=== PATIENT | female | born 1970 | race Caucasian/White ===

== ENCOUNTER 2022-08-19 08:24 | Outpatient (CLI) | payer BC, SELFPAY ==
[2022-08-19 14:07] LABS: Basophils Absolute Auto 0.04 K/uL (0.00-0.30); Basophils Percent Auto 0.5 % (0.0-3.0); Eosinophils Absolute Auto 0.17 K/uL (0.00-0.50); Hematocrit 46.4 % (33.0-51.0); Hemoglobin* 15.1 gm/dL (12.0-16.0); Immature Granulocytes Abs Auto 0.02 K/uL (0.00-0.30); Immature Granulocytes Pct Auto 0.2 %; Lymphocytes Absolute Auto 1.67 K/uL (0.90-2.90); Lymphocytes Percent Auto 20.1 % (20-44); Mean Corpuscular HGB Conc 33 gm/dL (32-36); Mean Corpuscular Hemoglobin 30 pg (26-34); Mean Corpuscular Volume 92 fL (80-100); Monocytes Percent Auto 9.2 % (0.0-11.0); Neutrophils Absolute Auto 5.64 K/uL (1.7-7.0); Platelet Count* 318 K/uL (140-440); RDW Coefficient of Variation % 16.1 % (11.5-15.5); Red Blood Count 5.06 m/uL (4.00-5.20)
[2022-08-19 14:19] LABS: Slide Review Reflex No
[2022-08-19 14:41] LABS: Chloride* 105 mmol/L (96-114); Potassium* 5.2 mmol/L (3.6-5.1); Sodium* 140 mmol/L (135-149)
[2022-08-19 14:44] LABS: Blood Urea Nitrogen* 15 mg/dL (5-24); Carbon Dioxide* 30 mmol/L (20-32); Cholesterol* 187 mg/dL (90-199); Creatinine* 0.8 mg/dL (0.5-1.5); Estimated Glomerular Filt Rate 90 ml/min; Glucose* 104 mg/dL (60-115)
[2022-08-19 14:45] LABS: Calcium* 9.6 mg/dL (8.4-10.6); HDL Cholesterol* 77 mg/dL (>=50); LDL Cholesterol Calculated 93 mg/dL (<100); Triglycerides* 84 mg/dL (40-149)
== END 2022-08-19 08:25 | disposition home or self-care (01) ==
PROVIDERS: PCP Family Medicine; Visit Provider Family Medicine
DX: Z00.00 Encounter for general adult medical examination without abnormal findings (principal); E55.9 Vitamin D deficiency, unspecified; Z13.6 Encounter for screening for cardiovascular disorders
CPT/HCPCS: 80048; 80061; 85025

== ENCOUNTER 2022-11-11 14:37 | Outpatient (CLI) | payer OTHER, SELFPAY ==
--- NOTE | 2022-11-11 14:40 | CRLHL7_ITS ---
For Patients: As a result of the Century Cures Act, medical imaging exams and procedure reports are released immediately into your electronic medical record. You may view this report before your referring provider. If you have questions, please contact your health care provider. BILATERAL SCREENING MAMMOGRAM WITH COMPUTER-AIDED DETECTION TECHNIQUE: CC and MLO views were obtained. These mammographic images have been obtained using full-field digital technique. These mammographic images were interpreted with the benefit of computer-aided detection. COMPARISON FILM: 05/07/20, 02/22/14. FINDINGS: There are scattered areas of fibroglandular density IMPRESSION: There is no radiographic evidence for malignancy. ASSESSMENT: BI-RADS Category 1: Negative RECOMMENDATION: Routine screening mammogram in 1 year. A lay language report of this examination will be provided to the patient. Cedric Love M.D. Diagnostic Radiologist [email or web address] Transcribed: 1:57 p.mAmara mitchell/Dictated by: Cedric Love MD @ 11/12/2022 10:13:00 AM (Electronically Signed)
== END 2022-11-11 14:38 | disposition home or self-care (01) ==
LOC: MAMMO 14:40
PROVIDERS: PCP Family Medicine; Visit Provider Family Medicine
DX: Z12.31 Encounter for screening mammogram for malignant neoplasm of breast (principal)
CPT/HCPCS: 77067

== ENCOUNTER 2024-03-07 08:27 | Outpatient (CLI) | payer OTHER, SELFPAY | END 2024-03-07 08:28 | disposition home or self-care (01) | PROVIDERS: PCP Family Medicine; Visit Provider Family Medicine | DX: I10 Essential (primary) hypertension (principal); Z13.220 Encounter for screening for lipoid disorders | CPT/HCPCS: 80048; 80061; 85025 ==

== ENCOUNTER 2024-05-30 14:53 | Outpatient (CLI) | payer OTHER, SELFPAY ==
--- NOTE | 2024-05-30 15:20 | CRLHL7_ITS ---
For Patients: As a result of the Century Cures Act, medical imaging exams and procedure reports are released immediately into your electronic medical record. You may view this report before your referring provider. If you have questions, please contact your health care provider. BILATERAL SCREENING MAMMOGRAM WITH COMPUTER-AIDED DETECTION AND TOMOSYNTHESIS TECHNIQUE: CC and MLO views were obtained. These mammographic images have been obtained using full-field digital technique. These mammographic images were interpreted with the benefit of computer-aided detection. Breast tomosynthesis was used in this interpretation. COMPARISON FILM: 11/11/22, 05/07/20, 02/22/14. FINDINGS: The breasts are heterogeneously dense, which may obscure small masses. IMPRESSION: There is no radiographic evidence for malignancy. ASSESSMENT: BI-RADS Category 1: Negative RECOMMENDATION: Routine screening mammogram in 1 year. A lay language report of this examination will be provided to the patient. CEDRIC EDDY M.D. Diagnostic Radiologist [email or web address] Transcribed: 3:[address]/Dictated by: Cedric Eddy MD @ 05/31/2024 11:18:00 AM (Electronically Signed)
== END 2024-05-30 14:54 | disposition home or self-care (01) ==
LOC: MAMMO 14:53
PROVIDERS: PCP Family Medicine; Visit Provider Family Medicine
DX: Z12.31 Encounter for screening mammogram for malignant neoplasm of breast (principal); R92.2 Inconclusive mammogram
CPT/HCPCS: 77063; 77067

== ENCOUNTER 2025-04-03 16:53 | Outpatient (CLI) | payer OTHER, SELFPAY | END 2025-04-03 16:54 | disposition home or self-care (01) | PROVIDERS: PCP Family Medicine; Visit Provider Family Medicine | DX: I10 Essential (primary) hypertension (principal) | CPT/HCPCS: 80048 ==

== ENCOUNTER 2025-05-08 08:12 | Outpatient (CLI) | payer OTHER, SELFPAY ==
[2025-05-09 15:37] LABS: HPV Source Cervix
[2025-05-11 09:39] LABS: Pap Test Digital Imaging Done
== END 2025-05-08 08:13 | disposition home or self-care (01) ==
PROVIDERS: PCP Family Medicine; Visit Provider Family Medicine
DX: Z12.4 Encounter for screening for malignant neoplasm of cervix (principal); Z11.51 Encounter for screening for human papillomavirus (HPV)
CPT/HCPCS: 87624; 87625; 88141; 88142; 88175

== ENCOUNTER 2025-07-31 14:50 | Outpatient (CLI) | payer OTHER, SELFPAY ==
--- NOTE | 2025-07-31 15:00 | CRLHL7_ITS ---
For Patients: As a result of the Century Cures Act, medical imaging exams and procedure reports are released immediately into your electronic medical record. You may view this report before your referring provider. If you have questions, please contact your health care provider. INDICATION: BILATERAL SCREENING MAMMOGRAM, ASYMPTOMATIC 54 Y/O FEMALE COMPARISON: 05/30/2024, 11/11/2022, 05/07/2020 TECHNIQUE: Digital mammogram in CC and MLO projections including computer-aided detection (CAD) and tomosynthesis. BREAST COMPOSITION: There are scattered areas of fibroglandular density. FINDINGS: No suspicious findings. ASSESSMENT: BI-RADS 1 Negative RECOMMENDATION: Annual screening mammogram. A lay language report of this examination will be provided to the patient. Dictated by: Cedric Love MD @ 08/01/2025 10:10:40 (Electronically Signed)
== END 2025-07-31 14:51 | disposition home or self-care (01) ==
LOC: MAMMO 14:50
PROVIDERS: PCP Family Medicine; Visit Provider Family Medicine
DX: Z12.31 Encounter for screening mammogram for malignant neoplasm of breast (principal)
CPT/HCPCS: 77063; 77067